=== PATIENT | female | born 1965 | race Caucasian/White ===

== ENCOUNTER 2017-10-13 11:58 | Emergency (ER) | payer BC, OTHER ==
[2017-10-13] MEDS ORDERED: Sodium Chloride 0.9% 1000 ML 1,000 ML IV STA (12:36)
[2017-10-13] MEDS ORDERED: Sodium Chloride 0.9% 1000 ML 1,000 ML ONE (12:43)
--- NOTE | 2017-10-13 12:43 | ERPHSYRPT ---
- History of Present Illness Time Seen by Provider: 10/13/17 12:25 Source: patient Exam Limitations: clinical condition Patient Subjective Stated Complaint: pt states on 10/12/17 she developed a "racing heart". states she did have chest heaviness at the time. states heart rate has stil felt like it has been racing. denies any chest discomfort at this time. Triage Nursing Assessment: pt pink, warm, dry. lung sounds clear and equal. Heart tones wnl. pt ambulated into Er without difficulty. Physician History: PATIENT WITH A HISTORY OF HYPOTHYROIDISM COMPLAINS OF PALPITATIONS INTERMITTENTLY OVER THE PAST 2 DAYS ASSOCIATED WITH LIGHTHEADEDNESS AND DIZZINESS. DENIES CHEST PAIN, DIAPHORESIS OR SHORTNESS. Timing/Duration: day(s) Activities at Onset: none Quality: other (DENIES PAIN) Location: substernal Chest Pain Radiation: no radiation Severity of Pain-Max: none Severity of Pain-Current: none Nitro Today/Relief: no nitro taken today Aspirin Treatment Today: no aspirin today Associated Symptoms: other (DIZZINESS) Prior Chest Pain/Cardiac Workup: no prior chest pain Allergies/Adverse Reactions: No Known Drug Allergies Allergy (Unverified 10/13/17 12:11) Home Medications: Levothyroxine Sodium 100 Mcg [Synthroid 100 Mcg] 100 mcg PO DAILY 02/12/15 [History] Tamoxifen Citrate 20 mg PO DAILY 02/12/15 [History] Clonazepam 0.25 mg PO DAILY PRN PRN 10/13/17 [History] Hx Tetanus, Diphtheria Vaccination/Date Given: Yes (up to date) Hx Influenza Vaccination/Date Given: Yes Hx Pneumococcal Vaccination/Date Given: No Immunizations Up to Date: Yes - Review of Systems Constitutional: No Fever, No Chills Eyes: No Symptoms Ears, Nose, & Throat: No Symptoms Respiratory: No Symptoms, No Cough, No Dyspnea Cardiac: Palpitations, No Chest Pain, No Edema, No Syncope Abdominal/Gastrointestinal: No Symptoms, No Abdominal Pain, No Nausea, No Vomiting, No Diarrhea Genitourinary Symptoms: No Symptoms, No Dysuria Musculoskeletal: No Symptoms, No Back Pain, No Neck Pain Skin: No Rash Neurological: Dizziness, No Focal Weakness, No Sensory Changes Psychological: No Symptoms Endocrine: No Symptoms All Other Systems: Reviewed and Negative - Past Medical History Pertinent Past Medical History: Yes Neurological History: No Pertinent History ENT History: No Pertinent History Cardiac History: No Pertinent History Respiratory History: No Pertinent History Endocrine Medical History: Hypothyroidism Musculoskeletal History: No Pertinent History GI Medical History: No Pertinent History History: No Pertinent History Psycho-Social History: No Pertinent History Female Reproductive Disorders: Breast Cancer - Past Surgical History Past Surgical History: Yes Neuro Surgical History: No Pertinent History Cardiac: No Pertinent History Respiratory: No Pertinent History Gastrointestinal: No Pertinent History Genitourinary: No Pertinent History Musculoskeletal: No Pertinent History Female Surgical History: Mastectomy, Other Other Surgical History: bilat mastectomy with reconstruction,uterine ablasion, - Social History Smoking Status: Never smoker Exposure to second hand smoke: No Drug Use: none Patient Lives Alone: No - Female History Hx Last Menstrual Period: ablation Hx Now: No - Nursing Vital Signs Nursing Vital Signs: Initial Vital Signs Temperature 98.2 F 10/13/17 12:04 Pulse Rate 114 H 10/13/17 12:04 Respiratory Rate 20 10/13/17 12:04 O2 Sat by Pulse Oximetry 98 10/13/17 12:04 Pain Scale Pain Intensity 0 - Physical Exam General Appearance: no apparent distress, alert Eye Exam: PERRL/EOMI, eyes nml inspection Ears, Nose, Throat Exam: normal ENT inspection, moist mucous membranes Neck Exam: normal inspection, non-tender, supple Respiratory Exam: normal breath sounds, lungs clear, No respiratory distress Cardiovascular Exam: regular rate/rhythm, normal heart sounds, tachycardia, No edema Gastrointestinal/Abdomen Exam: soft, No tenderness, No mass Back Exam: normal inspection, No CVA tenderness, No vertebral tenderness Extremity Exam: normal inspection, normal range of motion Neurologic Exam: alert, oriented x 3, cooperative, normal mood/affect, nml cerebellar function, sensation nml, No motor deficits Skin Exam: normal color, warm, dry Lymphatic Exam: No adenopathy SpO2 Interpretation: normal SpO2: 98 Oxygen Delivery: Room Air - Course EKG Interpreted by Me: RATE, Sinus Rhythm, Sinus Tach, NORMAL AXIS (RATE OF 100) - Radiology Exams Chest X-ray Interpretation: Reviewed by me, Negative Ordered Tests: Active Orders 24 hr Category Date Time Status Licensing Officer STAT Care 10/13/17 12:16 Active EKG-ER Only STAT Care 10/13/17 12:16 Active IV Insertion STAT Care 10/13/17 12:17 Active Oxygen-ED Only NASAL CANNULA 2 lpm Care 10/13/17 12:36 Active CHEST 1 VIEW (PORTABLE) Stat Exams 10/13/17 12:36 Completed CBC W DIFF Stat Lab 10/13/17 12:41 Completed CMP Stat Lab 10/13/17 12:41 Completed MAGNESIUM Stat Lab 10/13/17 13:31 Completed TROPONIN Q3H Lab 10/13/17 12:45 Completed TROPONIN Q3H Lab 10/13/17 15:45 Ordered TROPONIN Q3H Lab 10/13/17 18:45 Ordered TROPONIN Q3H Lab 10/13/17 21:45 Ordered TROPONIN Q3H Lab 10/14/17 00:45 Ordered TSH [TSH, 3RD Generation] Stat Lab 10/13/17 12:41 Completed UA W/RFX UR CULTURE Stat Lab 10/13/17 12:39 Ordered Holter Monitor ONCE RT 10/13/17 13:40 Ordered Medication Summary Generic Name Dose Route Start Last Admin Trade Name Freq PRN Reason Stop Dose Admin Sodium Chloride 1,000 mls @ 500 mls/hr 10/13/17 12:36 10/13/17 12:44 Sodium Chloride 0.9% 1000 Ml IV 10/13/17 14:35 500 mls/hr .Q2H STA Administration Discontinued Medications Generic Name Dose Route Start Last Admin Trade Name Freq PRN Reason Stop Dose Admin Sodium Chloride Confirm 10/13/17 12:43 Sodium Chloride 0.9% 1000 Ml Administered 10/13/17 12:44 Dose 1,000 mls @ ud .ROUTE .STK-MED ONE Lab/Rad Data: Laboratory Result Diagrams 10/13/17 12:41 10/13/17 12:41 Laboratory Results 10/13/17 10/13/17 10/13/17 Range/Units 13:31 12:45 12:41 WBC (4.0-10.5) K/mm3 RBC (4.1-5.4) M/mm3 Hgb (12.0-16.0) gm/dl Hct (35-47) % MCV (78-100) fl MCH (26-32) pg MCHC (32-36) g/dl RDW (11.5-14.0) % Plt Count (150-450) K/mm3 MPV (6-9.5) fl Gran % (36.0-66.0) % Lymphocytes % (24.0-44.0) % Monocytes % (0.0-12.0) % Eosinophils % (0.00-5.0) % Basophils % (0.0-0.4) % Basophils # (0-0.4) Sodium (136-145) mEq/L Potassium (3.5-5.1) mEq/L Chloride (98-107) mEq/L Carbon Dioxide (21-32) mEq/L Anion Gap (5-15) MEQ/L BUN (9-20) mg/dL Creatinine (0.55-1.30) mg/dl Estimated GFR ML/MIN Glucose (70-110) MG/DL Calcium (8.5-10.1) mg/dL Magnesium 2.2 (1.8-2.4) mg/dL Total Bilirubin (0.2-1.0) mg/dL AST (15-37) U/L ALT (12-78) U/L Alkaline Phosphatase (46-116) U/L Troponin I < 0.017 (0.000-0.056) ng/ml Serum Total Protein (6.4-8.2) gm/dL Albumin (3.4-5.0) g/dL TSH 3rd Generation 7.177 H (0.358-3.740) mIU/L 10/13/17 10/13/17 Range/Units 12:41 12:41 WBC 4.5 (4.0-10.5) K/mm3 RBC 5.14 (4.1-5.4) M/mm3 Hgb 14.6 (12.0-16.0) gm/dl Hct 44.8 (35-47) % MCV 87.2 (78-100) fl MCH 28.4 (26-32) pg MCHC 32.6 (32-36) g/dl RDW 13.3 (11.5-14.0) % Plt Count 231 (150-450) K/mm3 MPV 10.4 H (6-9.5) fl Gran % 52.1 (36.0-66.0) % Lymphocytes % 39.0 (24.0-44.0) % Monocytes % 6.7 (0.0-12.0) % Eosinophils % 1.8 (0.00-5.0) % Basophils % 0.4 (0.0-0.4) % Basophils # 0.02 (0-0.4) Sodium 142 (136-145) mEq/L Potassium 3.9 (3.5-5.1) mEq/L Chloride 105 (98-107) mEq/L Carbon Dioxide 27.7 (21-32) mEq/L Anion Gap 12.7 (5-15) MEQ/L BUN 12 (9-20) mg/dL Creatinine 0.88 (0.55-1.30) mg/dl Estimated GFR > 60 ML/MIN Glucose 94 (70-110) MG/DL Calcium 9.5 (8.5-10.1) mg/dL Magnesium (1.8-2.4) mg/dL Total Bilirubin 0.30 (0.2-1.0) mg/dL AST 18 (15-37) U/L ALT 24 (12-78) U/L Alkaline Phosphatase 70 (46-116) U/L Troponin I (0.000-0.056) ng/ml Serum Total Protein 8.4 H (6.4-8.2) gm/dL Albumin 4.6 (3.4-5.0) g/dL TSH 3rd Generation (0.358-3.740) mIU/L - Progress Progress Note: 10/13/17 13:57 IV HYDRATION NORMAL SALINE 500ML/HR, REPEAT VS AT 1335 BP 147/95 PULSE 93 10/13/17 13:59 A 48 HOURS HOLTER MONITOR PLACED WHILE IN EMERGENCY Counseled pt/family regarding: lab results, diagnosis, need for follow-up, rad results - Departure Time of Disposition: 14:00 Departure Disposition: Home Clinical Impression: PALPITATIONS Condition: Stable Critical Care Time: No Additional Instructions: MAINTAIN HOLTER MONITOR FOR 48 HOURS THEN RETURN MONITORY TO RESPIRATORY THERAPY DEPARTMENT. CONSULT YOUR PRIMARY CARE PROVIDER FOR FOLLOWUP APPOINTMENT. RETURN TO EMERGENCY FOR ONSET OF RAPID HEART RATE AND CHEST DISCOMFORT.
[2017-10-13 12:46] LABS: BASOPHIL % 0.4 % (0.0-0.4); Eosinophil % 1.8 % (0.00-5.0); Granulocytes % 52.1 % (36.0-66.0); Mean Cell Volume 87.2 fl (78-100); Mean Corpuscular Hemoglobin 28.4 pg (26-32); Mean Platelet Volume 10.4 fl (6-9.5); Monocytes % 6.7 % (0.0-12.0); Platelet Count 231 K/mm3 (150-450); Red Blood Count 5.14 M/mm3 (4.1-5.4); Red Cell Distribution Width 13.3 % (11.5-14.0); White Blood Count 4.5 K/mm3 (4.0-10.5)
[2017-10-13 12:54] LABS: ALBUMIN 4.6 g/dL (3.4-5.0); ALKALINE PHOSPHATASE 70 U/L (46-116); ANION GAP 12.7 MEQ/L (5-15); BLOOD UREA NITROGEN 12 mg/dL (9-20); CHLORIDE 105 mEq/L (98-107); Carbon Dioxide 27.7 mEq/L (21-32); Glucose 94 MG/DL (70-110); Potassium 3.9 mEq/L (3.5-5.1); SGOT/AST 18 U/L (15-37); SGPT/ALT 24 U/L (12-78); SODIUM 142 mEq/L (136-145); Total Protein 8.4 gm/dL (6.4-8.2)
--- NOTE | 2017-10-13 12:59 | XRAY ---
Indication: Dyspnea. Comparison: None Portable chest demonstrates normal heart and lungs. Bony thorax intact with right axillary roslyn dissection.
[2017-10-13 14:23] VITALS: BP 146/94; PULSE 96; O2SAT 96
[2017-10-13 14:41] LABS: Collection Type CLEAN CATCH
[2017-10-13 14:42] LABS: Bacteria MODERATE /HPF (NEGATIVE); Bilirubin NEGATIVE (NEGATIVE); COMPLETE URINE MICROSCOPIC? YES; Epithelial Cells FEW /HPF (FEW); Glucose NEGATIVE (NEGATIVE); Leukocyte Esterase 2+ (NEGATIVE); Mucus SLIGHT /HPF (NEGATIVE); WBC 15-25 /HPF (0-5)
[2017-10-13 14:43] LABS: ADD URINE CULTURE? YES (NO)
== END 2017-10-13 14:24 | disposition home or self-care (01) ==
LOC: ED 11:58
DX: R00.2 Palpitations (principal); E03.9 Hypothyroidism, unspecified; R42 Dizziness and giddiness; Z79.899 Other long term (current) drug therapy
CPT/HCPCS: 36000; 36415; 71010; 80053; 81000; 83735; 84443; 84484; 85025; 87086; 93005; 93041; 96360; 99284